=== PATIENT | male | born 2000 | race Caucasian/White ===

== ENCOUNTER 2018-06-18 15:51 | Emergency (ER) | payer OTHER ==
[2018-06-18 15:58] VITALS: BP 141/79
--- NOTE | 2018-06-18 16:42 | EDPHY ---
H & P Time Seen by Provider: 06/18/18 16:06 HPI/ROS: CHIEF COMPLAINT: Fall HISTORY OF PRESENT ILLNESS: Patient is a 17-year-old male who presents emergency department after striking his head and having mild neck stiffness. Patient was playing basketball when a player went under his legs. He landed on the floor striking the back of his head. He did not lose consciousness. He reports having the wind knocked out of him. He complains of a mild headache. No focal weakness or numbness. No visual change. No nausea or vomiting. Patient has no midline neck discomfort. REVIEW OF SYSTEMS: 10 systems were reveiwed and are negative with the exception of the elements mentioned in the hisotry of present illness. Past Medical/Surgical History: Negative Smoking Status: Never smoked Physical Exam: Vitals noted GENERAL: Well-appearing, in no acute distress, alert. HEAD: No evidence of trauma. EYES: PERRLA, EOMI, normal to inspection. ENT: Airway intact, no dental or oral injury, no malocclusion, no hemotympanum , normal external examination. NECK: The trachea is midline. There is no crepitus. The C-spine is nontender. NEXUS criteria is negative (no midline tenderness, no distracting injury, no altered mental status, no recent alcohol use, no focal neurologic deficit). RESPIRATORY: [Clear to auscultation bilaterally, no rales, rhonchi or wheezing. Chest wall: Normal to appearance. No crepitance or deformity. CVS: Regular rate and rhythm, no rubs, murmurs, or gallops. ABDOMEN: Soft, nontender, nondistended, no bruising or abrasions. BACK: Normal to inspection, no spinal tenderness, no spinal step off, no notable bruising or abrasions. SKIN: Normal color, warm, dry. No pallor or diaphoresis. EXTREMITIES: Atraumatic, neurovascularly intact distally in all extremities, hips with full range of motion, no pelvic tenderness, moves all extremities freely. NEURO/PSYCH: Higher functions: Alert and Oriented x3. Normal speech and cognition. Normal mood and affect. Cranial nerves: Normal as tested. Cerebellar: Normal as tested. Good finger to nose, good [id number], normal gait. Peripheral exam: Normal motor exam. Normal sensation. Constitutional: Initial Vital Signs Temperature (C) 37.2 C 06/18/18 15:53 Heart Rate 79 06/18/18 15:53 Respiratory Rate 16 06/18/18 15:53 Blood Pressure 141/79 H 06/18/18 15:53 O2 Sat (%) 97 06/18/18 15:53 O2 Delivery Mode Room Air Allergies/Adverse Reactions: No Known Allergies Allergy (Unverified 06/07/18 01:01) Home Medications: Medication Instructions Recorded NK [No Known Home Meds] 06/18/18 Medical Decision Making ED Course/Re-evaluation: In the emergency department I discussed possible etiologies with the patient. I answered all his questions. At this time his nexus criteria is negative. I do not feel the patient needs head CT imaging. Patient was given warnings prior to leaving. He will return with worsening symptoms. Differential Diagnosis: My differential includes but is not limited to concussion, contusion, subarachnoid hemorrhage, subdural hematoma, epidural hematoma, cervical fracture , cervical strain, disc herniation Departure - Departure Disposition: Home, Routine, Self-Care Clinical Impression: Cervical strain, acute Qualifiers: Encounter type: initial encounter Qualified Code(s): S16.1XXA - Strain of muscle, fascia and tendon at neck level, initial encounter Head contusion Qualifiers: Encounter type: initial encounter Contusion of head detail: other part of head Qualified Code(s): S00.83XA - Contusion of other part of head, initial encounter Condition: Good Instructions: Cervical Strain (ED), Head Injury (ED) Additional Instructions: Return with increasing pain, weakness, numbness, vomiting or any other concerns. Referrals: [facility],. [Clinic] - 3-4 days, if not improved
== END 2018-06-18 16:50 | disposition home or self-care (01) ==
LOC: EDUNIT#
DX: S16.1XXA Strain of muscle, fascia and tendon at neck level, initial encounter (principal); S00.83XA Contusion of other part of head, initial encounter; W01.198A Fall on same level from slipping, tripping and stumbling with subsequent striking against other object, initial encounter; Y93.67 Activity, basketball

== ENCOUNTER 2018-12-28 17:51 | Emergency (ER) | payer OTHER ==
[2018-12-28] MEDS ORDERED: ONDANSETRON 4 MG/2 ML VIAL IVP ONE (18:27)
[2018-12-28] MEDS ORDERED: NS 1,000 ML IV ONE (18:27)
[2018-12-28] MEDS ORDERED: HYDROmorphONE/DILAUDID 2 MG/ML INJ IVP ONE (18:27)
--- NOTE | 2018-12-28 18:44 | EDPHY ---
H & P Time Seen by Provider: 12/28/18 18:27 HPI/ROS: HPI Right lower quadrant abdominal pain. 18-year-old male by private vehicle from the [facility]. The patient presented to the clinic with complaint of periumbilical and right lower quadrant abdominal pain described as sharp and cramping onset of 4:00 a.m. This morning. He has had associated nausea with multiple episodes of nonbilious and nonbloody vomiting. He has had several episodes of watery diarrhea as well. No bloody or melenic stool. Last meal was 8:00 p.m. Last night. No prior abdominal surgical history. He was sent from clinic to evaluate for appendicitis. Patient also reports that he has had fever with chills. ROS: Constitutional: As above. No weakness. Eyes: No discharge. No changes in vision. ENT: No sore throat. No nasal congestion or rhinorrhea. Respiratory: No cough. No shortness of breath. Cardiac: No chest pain, no palpitations. Gastrointestinal: As above. Genitourinary: No hematuria. No dysuria or increased frequency with urination. Musculoskeletal: No back pain. No neck pain. No myalgias or arthralgias. Skin: No rashes. Neurological: No headache. No focal weakness or altered sensation. Past medical history: None. Social history: Student [employer]. No alcohol. Nonsmoker. Physical Exam: General Appearance: Alert, he is not distress. This patient is responding to questions appropriately and in full sentences. This patient appears well- hydrated and well-nourished. Eyes: Pupils equal and round no pallor or injection. No lid edema, erythema or injection. Respiratory: There are no retractions, lungs are clear to auscultation with good air movement bilaterally. Cardiovascular: Regular rate and rhythm. No murmur. Gastrointestinal: Abdomen is soft with periumbilical and right lower quadrant tenderness on palpation, no masses, bowel sounds normal. No focal tenderness at McBurney's point. No Bermudez sign. Neurological: Motor sensory function is grossly intact. Cranial nerves are normal. Gait is normal. Skin: Warm and dry, no rashes. Musculoskeletal: Neck is supple and nontender. Extremities are symmetrical. All joints range without pain or impingement. Psychiatric: No agitation. No depression. Database: EKG: Imaging: CT abdomen and pelvis with IV contrast: The appendix is well visualized and is normal. Other findings are consistent with a gastroenteritis, fluid-filled bowel loops. Constipation noted as well on the left side. No other significant pathology. Results were discussed with staff radiologist Dr. Beto Cowan. Procedures: Emergency department course: Triage vital signs reviewed and are unremarkable. The patient is afebrile. IV was placed. He was placed on a monitor. He was started on IV normal saline with 1 L to be given over the next hour. He was initially given 0.5 mg of IV hydromorphone and 4 mg of IV Zofran. I discussed CT imaging to evaluate for appendicitis. He endorses. 8:00 p.m. the patient was re-evaluated, currently he is comfortable. Results of his diagnostic workup and CT scan discussed with him. Repeat abdominal exam is soft with vague periumbilical and mid abdominal tenderness on palpation which is mild. He does feel comfortable going home at this time and I feel he is safe for discharge. I discussed follow-up through the [facility]. I will prescribe him Zofran. I will also prescribe him magnesium citrate to treat his constipation once his vomiting is under control and he is advancing his diet. He feels comfortable with this plan. Return to emergency department precautions have been reviewed with him. All of his questions were answered. He was discharged from the emergency department in good condition. Differential Diagnosis: The differential diagnosis on this patient includes but is not limited to appendicitis, enteritis, gastroenteritis. This represents a partial list of diagnoses considered. These considerations are based on history, physical exam , past history, reassessment and diagnostic testing. Smoking Status: Never smoked Constitutional: Initial Vital Signs Temperature (C) 37.3 C 12/28/18 18:00 Heart Rate 98 12/28/18 18:00 Respiratory Rate 16 12/28/18 18:00 Blood Pressure 131/72 H 12/28/18 18:00 O2 Sat (%) 96 12/28/18 18:00 O2 Delivery Mode Room Air Allergies/Adverse Reactions: No Known Allergies Allergy (Unverified 06/07/18 01:01) Home Medications: Medication Instructions Recorded Ondansetron Odt [Zofran Odt 4 mg 4 mg PO Q4PRN PRN #10 tab 12/28/18 (*)] Medical Decision Making - Data Points Laboratory Results: Laboratory Results 12/28/18 18:40 12/28/18 18:40 12/28/18 12/28/18 12/28/18 18:47 18:40 18:40 WBC 16.98 10^3/uL H 10^3/uL (3.80-9.50) RBC 4.79 10^6/uL 10^6/uL (4.40-6.38) Hgb 15.1 g/dL g/dL (13.7-17.5) POC Hgb 14.6 gm/dL gm/dL (13.7-17.5) Hct 41.5 % % (40.0-51.0) POC Hct 43 % % (40-51) MCV 86.6 fL fL (81.5-99.8) MCH 31.5 pg pg (27.9-34.1) MCHC 36.4 g/dL g/dL (32.4-36.7) RDW 11.7 % % (11.5-15.2) Plt Count 276 10^3/uL 10^3/uL (150-400) MPV 9.1 fL fL (8.7-11.7) Neut % (Auto) 91.9 % H % (39.3-74.2) Lymph % (Auto) 2.7 % L % (15.0-45.0) [place] % (Auto) 4.6 % % (4.5-13.0) Eos % (Auto) 0.0 % L % (0.6-7.6) Baso % (Auto) 0.2 % L % (0.3-1.7) Nucleat RBC Rel Count 0.0 % % (0.0-0.2) Absolute Neuts (auto) 15.60 10^3/uL H 10^3/uL (1.70-6.50) Absolute Lymphs (auto) 0.46 10^3/uL L 10^3/uL (1.00-3.00) Absolute Monos (auto) 0.78 10^3/uL 10^3/uL (0.30-0.80) Absolute Eos (auto) 0.00 10^3/uL L 10^3/uL (0.03-0.40) Absolute Basos (auto) 0.03 10^3/uL 10^3/uL (0.02-0.10) Absolute Nucleated RBC 0.00 10^3/uL 10^3/uL (0-0.01) Immature Gran % 0.6 % % (0.0-1.1) Immature Gran # 0.10 10^3/uL 10^3/uL (0.00-0.10) RBC/WBC/PLT Morphology TNP Platelet Estimate TNP POC Sodium 139 mEq/L mEq/L (135-145) Sodium 134 mEq/L L mEq/L (135-145) POC Potassium 4.1 mEq/L mEq/L (3.3-5.0) Potassium 4.4 mEq/L mEq/L (3.5-5.2) POC Chloride 102 mEq/L mEq/L (97-110) Chloride 104 mEq/L mEq/L (97-110) Carbon Dioxide 21 mEq/l L mEq/l (22-31) POC Total CO2 21 mEq/L L mEq/L (22-31) Anion Gap 9 mEq/L mEq/L (6-14) POC BUN 23 mg/dL mg/dL (7-23) BUN 24 mg/dL H mg/dL (7-23) Creatinine 0.8 mg/dL mg/dL (0.7-1.3) POC Creatinine 0.9 mg/dL mg/dL (0.7-1.3) Estimated GFR > 60 Glucose 110 mg/dL H mg/dL (70-100) POC Glucose 116 mg/dL H mg/dL (70-100) Calcium 8.7 mg/dL mg/dL (8.5-10.4) Medications Given: Discontinued Medications Hydromorphone HCl (Dilaudid) 0.5 mg IVP EDNOW ONE Stop: 12/28/18 18:28 Last Admin: 12/28/18 18:56 Dose: 0.5 mg Sodium Chloride (Ns) 1,000 mls @ 0 mls/hr IV EDNOW ONE; Wide Open PRN Reason: Protocol Stop: 12/28/18 18:28 Last Admin: 12/28/18 18:39 Dose: 1,000 mls Ondansetron HCl (Zofran) 4 mg IVP EDNOW ONE Stop: 12/28/18 18:28 Last Admin: 12/28/18 18:57 Dose: 4 mg Point of Care Test Results: Chemistry 12/28/18 18:47 POC Sodium 139 mEq/L mEq/L (135-145) POC Potassium 4.1 mEq/L mEq/L (3.3-5.0) POC Chloride 102 mEq/L mEq/L (97-110) POC Total CO2 21 mEq/L L mEq/L (22-31) POC BUN 23 mg/dL mg/dL (7-23) POC Creatinine 0.9 mg/dL mg/dL (0.7-1.3) POC Glucose 116 mg/dL H mg/dL (70-100) ISTAT H&H 12/28/18 18:47 POC Hgb 14.6 gm/dL gm/dL (13.7-17.5) POC Hct 43 % % (40-51) Departure - Departure Disposition: Home, Routine, Self-Care Clinical Impression: Abdominal pain, Vomiting and diarrhea Condition: Good Instructions: Gastroenteritis (ED), Constipation (ED) Additional Instructions: Read and follow provided instructions. Follow-up with your primary care physician in 1-2 days for re-evaluation at the [facility]. Take medication as prescribed for nausea. Return to the emergency department for worsening symptoms, worsening abdominal pain, vomiting and inability to keep fluids down despite medications, fever, blood in your stool or other serious concerns. Referrals: NONE *PRIMARY CARE P,. [Primary Care Provider] - As per Instructions [facility] [[facility]] - As per Instructions Prescriptions: Ondansetron Odt [Zofran Odt 4 mg (*)] 4 mg PO Q4PRN PRN #10 tab PRN Reason: For Nausea & Vomiting
[2018-12-28 18:49] LABS: PLATELET COUNT 276 10^3/uL (150-400)
[2018-12-28] MEDS ORDERED: HYDROmorphONE/DILAUDID 1 MG/ML INJ ONE (18:54)
[2018-12-28] MEDS ORDERED: IOPAMIDOL (ISOVUE-300) 100 ML BTL ONE (19:00)
[2018-12-28 19:35] VITALS: BP 123/67
== END 2018-12-28 20:19 | disposition home or self-care (01) ==
DX: R10.31 Right lower quadrant pain (principal); R11.2 Nausea with vomiting, unspecified; R19.7 Diarrhea, unspecified
CPT/HCPCS: 82435-PO; 82565-PO; 82947-PO; 84132-PO; 84295-PO; 84520-PO; 85014-ER; 96374; J1170; J2405; Q9967